=== PATIENT | female | born 1980 | race Caucasian/White ===

== ENCOUNTER → 2016-11-05 | Outpatient (CLI) | payer OTHER ==
--- NOTE | 2016-11-05 11:59 | MR ---
MRI of the brain with and without contrast HISTORY: Headaches. TECHNIQUE: T1-weighted sagittal, T2, FLAIR, and diffusion axial, postcontrast T1 axial and coronal vi ews of the brain are submitted. CONTRAST: 10 mL MultiHance FINDINGS: There is no evidence of acute ischemia. The ventricles, basal cisterns, and sulci overlying the co nvexities are consistent with the patient's age. There is no mass effect or enhancing mass. Craniocervical junction maintained. Sella turcica has a normal appearance. No evidence of cerebellopo ntine angle mass. Prominent CSF space throughout the prepontine cistern and perimesencephalic cistern. Vasculature does traverse this and this may represent a normal variant. Small arachnoid cyst, epidermoid would be les s likely considerations, however, there is no mass effect or lobulation to the anterior margin the br ainstem. Correlate clinically. WHITE MATTER: No abnormal signal seen within the visualized white matter. IMPRESSION: 1. No acute intracranial process. See above.
== END | disposition home or self-care (01) ==
LOC: RADMRIMAIN 09:38
PROVIDERS: ATTEND Family Medicine
DX: G43.909 Migraine, unspecified, not intractable, without status migrainosus (principal)
CPT/HCPCS: 70553; A9577

== ENCOUNTER → 2017-05-09 | Outpatient (CLI) | payer OTHER ==
--- NOTE | 2017-05-10 07:06 | US ---
EXAMINATION TYPE: US pelvic complete DATE OF EXAM: 05/09/2017 COMPARISON: NONE CLINICAL HISTORY: N94.1 dyspareunia R10.2 Abdominal Pain. Pelvic cramping TECHNIQUE: TA Date of LMP: 05/04/2017 EXAM MEASUREMENTS: Uterus: 8.2 x 1.7 x 2.0 cm Endometrial Stripe: 0.7 cm Right Ovary: 2.3 x 1.7 x 2.0 cm Left Ovary: 2.2 x 1.8 x 1.5 cm 1. Uterus: Anteverted wnl 2. Endometrium: wnl 3. Right Ovary: wnl 4. Left Ovary: wnl 5. Bilateral Adnexa: wnl 6. Posterior cul-de-sac: wnl No evidence for uterine mass. The uterus is anteverted. Endometrium is unremarkable. No adnexal or ov cyrus masses. IMPRESSION: Unremarkable study.
== END | disposition home or self-care (01) ==
LOC: RADUSWWP 16:40
PROVIDERS: ATTEND Family Medicine
DX: N94.10 Unspecified dyspareunia (principal); R10.2 Pelvic and perineal pain
CPT/HCPCS: 76856

== ENCOUNTER → 2018-05-31 | Outpatient (CLI) | payer OTHER ==
[2018-05-31 11:47] LABS: HCT 35.2 % (34.0-46.0); HGB 11.9 gm/dL (11.4-16.0); MCH 32.3 pg (25.0-35.0); MCHC 33.7 g/dL (31.0-37.0); MCV 95.7 fL (80.0-100.0); Mean Platelet Volume 7.8; Platelet Count 241 k/uL (150-450); RBC 3.67 m/uL (3.80-5.40); RDW 13.1 % (11.5-15.5); WBC 12.4 k/uL (3.8-10.6)
== END | disposition home or self-care (01) ==
LOC: LABWHC1 09:31
PROVIDERS: ATTEND Obstetrics & Gynecology
DX: Z34.82 Encounter for supervision of other normal pregnancy, second trimester (principal); Z3A.00 Weeks of gestation of pregnancy not specified
CPT/HCPCS: 36415; 82950; 85027

== ENCOUNTER 2018-07-20 16:44 | Outpatient (CLI) | payer OTHER ==
[2018-07-20 23:00] VITALS: BP 139/85; PULSE 108; RESP 18; TEMP 98.4
--- NOTE | 2018-07-25 07:01 | P.MSEPDOC ---
Presenting Problems - Arrival Data Date of Arrival on Unit: 07/20/18 Time of Arrival on Unit: 16:44 Mode of Transport: Ambulatory - Complaint Comment: pt presents to triage for twice weekly NST by Dr. Lange for JOLIET Medical History - Information : 6 Para: 4 Term: 4 : 0 Abortions: Spontaneous or Elective: 1 Number of Living Children: 4 - Gestational Age Gestational Age by REBECA (wks/days): 35 Weeks and 3 Days - History Complications: Smoker Review of Systems - Review of Systems Constitutional: No problems Breast: No problems ENT: No problems Cardiovascular: No problems Respiratory: No problems Gastrointestinal: No problems Genitourinary: No problems Musculoskeletal: No problems Neurological: No problems Skin: No problems Vital Signs - Temperature Temperature: 98.4 F Temperature Source: Temporal Artery Scan - Pulse Right Brachial Pulse Rate: 108 Pulse Assessment Method: Automatic Cuff - Respirations Respiratory Rate: 18 Oxygen Delivery Method: Room Air - Blood Pressure Right Arm Blood Pressure: 139/85 Blood Pressure Mean: 103 Blood Pressure Source: Automatic Cuff Physician Notification (Pre) - Physician Notified Physician Notified Date: 07/20/18 Physician Notified Time: 17:20 Physician/Practitioner Notifed:: Dr. Lynn Spoke With: Dr. Lynn New Order Received: Yes - Notification Comment Comment: discharge pt home Disposition - Disposition OB Disposition: Triage, Discharge to home, Written follow up instructions reviewed Discharge Date: 07/20/18 Discharge Time: 17:30 I agree with the RN Medical Screening Exam: Yes Risk & Benefit of care provided described in d/c instruction: Yes Diagnosis: SUPERVISION OF ELDERLY MULTIGRAVIDA, THIRD TRIMESTER
== END 2018-07-20 17:30 | disposition home or self-care (01) ==
LOC: FBPOP 16:44
PROVIDERS: ATTEND Obstetrics & Gynecology
DX: O09.523 Supervision of elderly multigravida, third trimester (principal); Z3A.35 35 weeks gestation of pregnancy
CPT/HCPCS: 59025

== ENCOUNTER 2018-07-24 17:54 | Observation (INO) | payer OTHER ==
[2018-07-24 18:20] LABS: Basophils # (A) 0.1 k/uL (0-0.2); Basophils % (A) 0 %; Eosinophils # (A) 0.3 k/uL (0-0.7); Eosinophils % (A) 3 %; HCT 38.4 % (34.0-46.0); HGB 12.6 gm/dL (11.4-16.0); Lymphocytes # (A) 2.1 k/uL (1.0-4.8); Lymphocytes % (A) 16 %; MCH 30.9 pg (25.0-35.0); MCHC 32.7 g/dL (31.0-37.0); MCV 94.4 fL (80.0-100.0); Mean Platelet Volume 8.2; Monocytes # (A) 0.9 k/uL (0-1.0); Monocytes % (A) 7 %; Neutrophils % (A) 72 %; Platelet Count 296 k/uL (150-450); RBC 4.07 m/uL (3.80-5.40); RDW 13.3 % (11.5-15.5); WBC 12.6 k/uL (3.8-10.6)
[2018-07-24 18:28] LABS: ALT 37 U/L (9-52); AST 30 U/L (14-36); Blood Urea Nitrogen 8 mg/dL (7-17); LDH 456 U/L (313-618); Uric Acid 4.4 mg/dL (3.7-7.4)
[2018-07-24 18:49] LABS: Appearance,Urine Clear (Clear); Bilirubin,Urine Negative (Negative); Blood,Urine Negative (Negative); Color,Urine Colorless; Glucose,Urine (UA) Negative (Negative); Ketones,Urine Negative (Negative); Leukocyte Esterase,Urine Negative (Negative); Nitrite,Urine Negative (Negative); Protein,Urine Negative (Negative); Specific Gravity,Urine 1.002 (1.001-1.035); Urobilinogen,Urine <2.0 mg/dL (<2.0)
[2018-07-24 19:53] VITALS: BMI 29.5
--- NOTE | 2018-07-24 20:08 | P.HPOB ---
History of Present Illness H&P Date: 07/24/18 Chief Complaint: Gestational hypertension. This patient is a pleasant 38 yr female EDC 08/21/2018 estimated gestational age 36 0/7 weeks who presented to L&D this evening for a NST secondary to AMA. care is per Dr. Lange and is complicated by advanced gestational age and history of hypertension. Patient apparently only wanted free cell DNA testing however it does not appear that she did this test. Patient did not want referral to [facility]. Patient has been getting NST 2x/week. She presented to L&D this evening for an NST due to not having transportation during the day hours. Blood pressure on admission was 138/96 and 144/106. Blood pressures in the office prior to this were normal. Patient reports a history of hypertension when not , but apparently no meds. She also had elevated blood pressures (150/90) at the time of her last delivery. Patient denies headaches, visual changes, or swelling. Good movement. Does have a history of 19 week demise. Last ultrasound was at 32 weeks and showed adequate growth (84%). Patient does smoke >1/2 PPD. Review of Systems Genitourinary: Reports Menstruation: Reports amenorrhea Past Medical History Past Medical History: Hypertension (No meds.) History of Any Multi-Drug Resistant Organisms: None Reported Past Surgical History: No Surgical Hx Reported Past Anesthesia/Blood Transfusion Reactions: No Reported Reaction Past Psychological History: No Psychological Hx Reported Smoking Status: Current some day smoker Past Alcohol Use History: None Reported Past Drug Use History: None Reported - Past Family History Father Family Medical History: No Reported History Medications and Allergies Home Medications Medication Instructions Recorded Confirmed Type Vit No.124/Iron/Folic 1 each PO DAILY 02/09/15 07/20/18 History [ Vitamin Tablet] Montelukast Sodium [Singulair] 5 mg PO DAILY 07/20/18 07/20/18 History Allergies Allergy/AdvReac Type Severity Reaction Status Date / Time No Known Allergies Allergy Verified 07/24/18 17:56 Exam Vital Signs Temp Pulse Resp BP 07/24/18 19:10 102 H 18 139/94 07/24/18 18:34 97.6 F 103 H 18 138/96 Intake and Output 07/24/18 07/24/18 07/24/18 06:59 14:59 22:59 Other: Weight 78.018 kg - OBG Physical Exam Uterus: enlarged Results Labs: A positive, Rubella Immune, RPR-HepB neg, Glucola 108 Result Diagrams: 07/24/18 18:12 07/24/18 18:12 Abnormal Lab Results - Last 24 Hours (Table) 07/24/18 07/24/18 Range/Units 18:12 18:12 WBC 12.6 H (3.8-10.6) k/uL Neutrophils # 9.0 H (1.3-7.7) k/uL Creatinine 0.47 L (0.52-1.04) mg/dL Assessment and Plan Assessment: This is a 38 yr female 36 and 0/7 weeks with gestational hypertension, new onset. Possible history of chronic hypertension and previous gestational hypertension. Although current labs do not indicate pre-eclampsia, she has significant risks factors for developing this. At this time there is no evidence of maternal compromise. Plan is to admit for close observation, serial blood pressures, surveilance, and complete ultrasound in the morning. Currently her BPs do not warrant treatment. Most likely will require close outpatient monitoring and delivery at 37 weeks. (1) 36 weeks gestation of Current Visit: Yes Status: Acute Code(s): Z3A.36 - 36 WEEKS GESTATION OF SNOMED Code(s): 12278993 (2) Gestational hypertension Current Visit: Yes Status: Acute Code(s): O13.9 - GESTATIONAL HTN W/O SIGNIFICANT PROTEINURIA, UNSP TRIMESTER SNOMED Code(s): 889077706 (3) Elderly multigravida in third trimester Current Visit: Yes Status: Acute Code(s): O09.523 - SUPERVISION OF ELDERLY MULTIGRAVIDA, THIRD TRIMESTER SNOMED Code(s): 324168922
[2018-07-24 23:17] VITALS: RESP 16
--- NOTE | 2018-07-25 08:47 | US ---
EXAMINATION TYPE: US OB >= 14 wk fetus DATE OF EXAM: 07/25/2018 COMPARISON: None CLINICAL HISTORY: Hypertension HTN TECHNIQUE: Transabdominal (TA) GESTATIONAL AGE / DATING Physician Established: (36 weeks/2 days) EDC: 08/20/18 Dates by LMP: unknown Dates by First Scan: No previous this is first scan Dates by Current Scan: (36 weeks/4 days) EDC: 08/18/18 SURVEY IUP: Single PLACENTA: Anterior PREVIA: No Previa DEION: 11.7 cm Normal CERVICAL LENGTH (transabdominal: norm > 3.0cm): 3.5 cm BIOMETRY PRESENTATION: Vertex LIE: Longitudinal BPD: 9.2 cm 37 weeks / 1 days HC: 32.9 cm 37 weeks / 3 days AC: 32.8 cm 36 weeks / 5 days FL: 7.2 cm 36 weeks / 5 days ESTIMATED WEIGHT IN GRAMS: 3042 grams ESTIMATED WEIGHT IN LBS/OZ: 6 lbs. 11 oz. WEIGHT PERCENTAGE BASED ON ESTABLISHED DATES: 67.6% HC/AC: 1.00 Normal FL/AC: 21.81 Normal HEART RATE: 150 bpm RHYTHM: Normal Single viable IUP 36wks/4days with REBECA of 08/18/18. Limited evaluation of cervix due to age and cephalic position. anatomy assessment was not ordered or performed. Images are not submitted. IMPRESSION: Viable 36 week 4 day gestation with an REBECA of 08/10/2018 and heart rate of 150 bpm.
[2018-07-25] MEDS ORDERED: ACETAMINOPHEN TAB 325 MG TAB PO PRN (08:53)
[2018-07-25 12:02] VITALS: BP 136/96; PULSE 97; TEMP 97.8
--- NOTE | 2018-07-25 12:36 | P.DS ---
Providers Date of admission: 07/24/18 19:14 Expected date of discharge: 07/25/18 Attending physician: Chin Lange Primary care physician: Stated None Hospital Course: Judy is seen and evaluated today. I did see her both this morning and at noon. She is had no significant change in her blood pressures there all between 130/90 range. She has no symptoms no headache, no epigastric pain, no visual changes, minimal to no peripheral swelling, no protein in her urine. We did review all labs, there are no labs relating to verification for preeclampsia. In discussing further her current situation with her blood pressure it is noted that she had been on a low pressure medication just prior to getting and then stopped, she was not on it for very long and it was as far she That her blood pressure was not significantly elevated. I suspect that she does have some underlying hypertension which does increase her risk for superimposed preeclampsia. It is still possible this is truly gestational hypertension and the hypertension prior to her really wasn't an issue. With normal systolic and only minimally elevated diastolic blood pressures will plan to discharge her to home and follow-up with me on Tuesday for NST and blood pressure check lengthy discussion was held with her on modified bedrest and resting as much as possible. Discharge instructions were very thoroughly reviewed including to return immediately for contractions, rupture membranes, headache, epigastric pain, visual changes or any other signs or symptoms of preeclampsia. An information sheet was also provided for her to review. All the questions are answered for her at this time. Her heart is otherwise regular, lungs clear and her extremities are without pain. NST earlier today was reactive. Assessment intrauterine 36 weeks with hypertension versus gestational hypertension. Plan discharged home follow up with me in 3 days. Patient Condition at Discharge: Good Plan - Discharge Summary New Discharge Prescriptions: No Action Vit No.124/Iron/Folic [ Vitamin Tablet] 1 each PO DAILY Montelukast Sodium [Singulair] 5 mg PO DAILY Discharge Medication List Vit No.124/Iron/Folic [ Vitamin Tablet] 1 each PO DAILY [History] Montelukast Sodium [Singulair] 5 mg PO DAILY 07/20/18 [History] Follow up Appointment(s)/Referral(s): Chin Lange DO [Doctor of Osteopathic Medicine] - 3 Weeks Activity/Diet/Wound Care/Special Instructions: Patient to be discharged home on modified bedrest. Complete pelvic rest. She is aware should she have any headache Epigastric pain, visual changes or other issues relating to hypertension she needs to report immediately back to labor and delivery. Discharge Disposition: HOME SELF-CARE
== END 2018-07-25 13:10 | disposition home or self-care (01) ==
LOC: FBPOP 17:54 → 4FBP 19:14
PROVIDERS: ADMIT Obstetrics & Gynecology; ATTEND Obstetrics & Gynecology
DX: Z3A.36 36 weeks gestation of pregnancy (principal); O13.3 Gestational [pregnancy-induced] hypertension without significant proteinuria, third trimester; O99.333 Smoking (tobacco) complicating pregnancy, third trimester; F17.210 Nicotine dependence, cigarettes, uncomplicated; O09.523 Supervision of elderly multigravida, third trimester
CPT/HCPCS: 59025; 99215; 82565; 83615; 84450; 84460; 84520; 84550; 85025; 81003; 76805; G0378 ×2

== ENCOUNTER 2018-08-12 06:19 | Inpatient (IN) | payer OTHER ==
[2018-08-12] MEDS ORDERED: CARBOPROST TROMETHAMINE 250 MCG/ML 1 ML AMP IM PRN (06:25)
[2018-08-12] MEDS ORDERED: LIDOCAINE 0.5% (PF) 5 MG/ML (50 ML SDV) SQ PRN (06:25)
[2018-08-12] MEDS ORDERED: OXYTOCIN 10 UNIT/ML 1 ML VIAL IM PRN (06:25)
[2018-08-12] MEDS ORDERED: TERBUTALINE 1 MG/ML VIAL SQ PRN (06:25)
[2018-08-12] MEDS ORDERED: METHYLERGONOVINE 0.2 MG/ML 1 ML AMP IM PRN (06:25)
[2018-08-12] MEDS ORDERED: OXYTOCIN 20 UNITS/1000 ML NS 1,000 ML IV SCH ×2 (06:30→07:15)
[2018-08-12] MEDS ORDERED: LACTATED RINGERS 1,000 ML IV SCH (06:30)
[2018-08-12 06:38] LABS: Basophils # (A) 0.1 k/uL (0-0.2); Basophils % (A) 0 %; Eosinophils # (A) 0.4 k/uL (0-0.7); Eosinophils % (A) 3 %; HCT 43.2 % (34.0-46.0); HGB 14.1 gm/dL (11.4-16.0); Lymphocytes # (A) 2.3 k/uL (1.0-4.8); Lymphocytes % (A) 16 %; MCHC 32.7 g/dL (31.0-37.0); MCV 94.7 fL (80.0-100.0); Mean Platelet Volume 8.2; Monocytes # (A) 0.9 k/uL (0-1.0); Monocytes % (A) 6 %; Neutrophils # (A) 10.7 k/uL (1.3-7.7); Neutrophils % (A) 74 %; Platelet Count 281 k/uL (150-450); RBC 4.56 m/uL (3.80-5.40); RDW 13.1 % (11.5-15.5); WBC 14.5 k/uL (3.8-10.6)
[2018-08-12] MEDS ORDERED: ACETAMINOPHEN TAB 325 MG TAB PO PRN (07:08)
[2018-08-12] MEDS ORDERED: HYDROCORTISONE 2.5% RECTAL CREAM 30 GM TUBE RECTAL PRN (07:08)
[2018-08-12] MEDS ORDERED: diphenhydrAMINE 25 MG CAP PO PRN (07:08)
[2018-08-12] MEDS ORDERED: diphenhydrAMINE 50 MG/ML 1 ML VIAL IVP PRN ×2 (07:08)
[2018-08-12] MEDS ORDERED: LANOLIN CREAM 5 GM TUBE TOPICAL PRN (07:08)
[2018-08-12] MEDS ORDERED: SIMETHICONE 80 MG CHEWABLE PO PRN (07:08)
[2018-08-12] MEDS ORDERED: ZOLPIDEM 5 MG TAB PO PRN (07:08)
[2018-08-12] MEDS ORDERED: WITCH HAZEL 1 EACH MED..PAD TOPICAL PRN (07:08)
[2018-08-12] MEDS ORDERED: diphenhydrAMINE 50 MG CAP PO PRN (07:08)
[2018-08-12] MEDS ORDERED: BENZOCAINE/MENTHOL SPRAY 1 GM/SPRAY AEROSOL TOPICAL PRN (07:08)
[2018-08-12 07:09] VITALS: BMI 27.1
--- NOTE | 2018-08-12 07:17 | P.HPOB ---
History of Present Illness H&P Date: 08/12/18 Chief Complaint: LAbor 38 year old presents at 38 weeks 5 days in labor. Her cervix is 6-7 cm dilated, 90s presented effaced, -2 station. She is vinicius every 3 minutes. heart tones 130-135 with moderate variability and reactive. Review of Systems All systems: negative Constitutional: Denies chills, Denies fever Eyes: denies blurred vision, denies pain Ears, nose, mouth and throat: Denies headache, Denies sore throat Cardiovascular: Denies chest pain, Denies shortness of breath Respiratory: Denies cough Gastrointestinal: Denies abdominal pain, Denies diarrhea, Denies nausea, Denies vomiting Genitourinary: Denies dysuria, Denies hematuria Musculoskeletal: Denies myalgias Integumentary: Denies pruritus, Denies rash Neurological: Denies numbness, Denies weakness Psychiatric: Denies anxiety, Denies depression Endocrine: Denies fatigue, Denies weight change Past Medical History Past Medical History: Hypertension, Mitral Valve Prolapse (MVP) Additional Past Medical History / Comment(s): OB history: She's had 4 previous vaginal deliveries. This is her sixth . She's had care with Dr. Lange. Blood type A+, antibodies negative, rubella immune, this B-, GBS negative, RPR nonreactive. History of Any Multi-Drug Resistant Organisms: None Reported Past Surgical History: No Surgical Hx Reported Past Anesthesia/Blood Transfusion Reactions: No Reported Reaction Past Psychological History: No Psychological Hx Reported Smoking Status: Former smoker Past Alcohol Use History: None Reported Past Drug Use History: None Reported - Past Family History Father Family Medical History: No Reported History Medications and Allergies Home Medications Medication Instructions Recorded Confirmed Type Vit No.124/Iron/Folic 1 each PO DAILY 02/09/15 08/12/18 History [ Vitamin Tablet] Montelukast Sodium [Singulair] 5 mg PO DAILY 07/20/18 08/12/18 History Allergies Allergy/AdvReac Type Severity Reaction Status Date / Time No Known Allergies Allergy Verified 08/12/18 06:24 Exam Osteopathic Statement: *. No significant issues noted on an osteopathic structural exam other than those noted in the History and Physical/Consult. Vital Signs Temp Pulse Resp BP 08/12/18 06:41 98.1 F 105 H 18 140/96 08/12/18 06:25 98.1 F 105 H 18 140/96 Intake and Output 08/11/18 08/12/18 08/12/18 22:59 06:59 14:59 Other: Weight 71.668 kg Heart: Regular rate and rhythm Lungs: Clear to auscultation bilaterally Abdomen: Soft, nontender Extremities: Negative Homans sign Results Result Diagrams: 08/12/18 06:30 Abnormal Lab Results - Last 24 Hours (Table) 08/12/18 Range/Units 06:30 WBC 14.5 H (3.8-10.6) k/uL Neutrophils # 10.7 H (1.3-7.7) k/uL Assessment and Plan (1) Normal labor Current Visit: Yes Status: Acute Code(s): O80 - ENCOUNTER FOR FULL-TERM UNCOMPLICATED DELIVERY; Z37.9 - OUTCOME OF DELIVERY, UNSPECIFIED SNOMED Code(s ): 34678928 Plan: 1. Admit to family place 2. Anticipate normal vaginal delivery
--- NOTE | 2018-08-12 07:18 | P.PROBDLV ---
Vaginal Delivery Note - . Vaginal Delivery Note: 38 year old presents at 38 weeks 5 days in labor. Her cervix is 6-7 cm dilated, 90s presented effaced, -2 station. She is vinicius every 3 minutes. heart tones 130-135 with moderate variability and reactive. Amniotomy was performed at 6:56 AM, clear fluid noted. Her cervix was completely dilated at 6:58 AM. She pushed, and delivered a viable female infant over intact perineum at 6:59 AM. Head delivered OA, anterior shoulder delivered gentle downward guidance all the posterior shoulder and rest of body. Nose and mouth bulb suctioned, cord clamped and cut, infant placed mother's abdomen. Apgars 8, 9, weight 8 lbs. 7 oz. Placenta delivered spontaneously, intact with three-vessel cord at 7:03 AM. Vagina, cervix, perineum inspected. No lacerations noted. Estimated blood loss 150 mL. Mother and baby in stable condition.
[2018-08-12] MEDS: IBUPROFEN 600 MG TAB PO PRN ×3 (07:26→20:58)
[2018-08-12] MEDS: LABETALOL 200 MG TAB PO SCH ×2 (12:05→20:58)
[2018-08-12] MEDS: SENNOSIDES-DOCUSATE SODIUM 1 EACH TAB PO SCH ×2 (19:58→21:33)
[2018-08-12 21:31] VITALS: RESP 16
[2018-08-13] MEDS: SENNOSIDES-DOCUSATE SODIUM 1 EACH TAB PO SCH (00:13)
[2018-08-13] MEDS: IBUPROFEN 600 MG TAB PO PRN (06:14)
--- NOTE | 2018-08-13 07:23 | P.DS ---
Providers Date of admission: 08/12/18 06:29 Expected date of discharge: 08/13/18 Attending physician: Chin Lange Primary care physician: Stated None - Discharge Diagnosis(es) (1) Normal labor Current Visit: Yes Status: Resolved (2) Normal vaginal delivery Current Visit: Yes Status: Acute Hospital Course: Patient presented in labor. She underwent a normal vaginal delivery. her blood pressures were 150s over 100s. She says that before she was she did have high blood pressure and was on blood pressure medication but during her her blood pressures remained stable except for one occurrence where she did have an elevated blood pressure and was kept overnight for a workup that was negative. I placed on labetalol 200 mg twice a day and her blood pressures came down to 120s over 70s to 130s over 90s. She will follow up with her primary care doctor this week to follow her blood pressures. Labs were all normal and she denies any symptoms, no headache no vision changes no shortness of breath no swelling no right upper quadrant pain. She is aware that if any of these symptoms do presents she is to return to the hospital immediately. Plan - Discharge Summary New Discharge Prescriptions: New Labetalol [Trandate] 200 mg PO BID #60 tab No Action Vit No.124/Iron/Folic [ Vitamin Tablet] 1 each PO DAILY Montelukast Sodium [Singulair] 5 mg PO DAILY Discharge Medication List Vit No.124/Iron/Folic [ Vitamin Tablet] 1 each PO DAILY [History] Montelukast Sodium [Singulair] 5 mg PO DAILY 07/20/18 [History] Labetalol [Trandate] 200 mg PO BID #60 tab 08/13/18 [Rx] Follow up Appointment(s)/Referral(s): Chin Lange DO [Doctor of Osteopathic Medicine] - 6 Weeks Kaylah Morgan DO [REFERRING] - 1 Week (for blood pressure) Discharge Disposition: HOME SELF-CARE
[2018-08-13 08:11] VITALS: BP 125/81; PULSE 93; TEMP 97.6
[2018-08-13] MEDS: LABETALOL 200 MG TAB PO SCH (08:47)
== END 2018-08-13 10:30 | disposition home or self-care (01) | DRG 807 ==
LOC: FBPOP 06:19 → 4FBP 06:29
PROVIDERS: ADMIT Obstetrics & Gynecology; ATTEND Obstetrics & Gynecology
PROC: 10E0XZZ Delivery of Products of Conception, External Approach (ICD-10-PCS; principal; 2018-08-12)
PROC: 10907ZC Drainage of Amniotic Fluid, Therapeutic from Products of Conception, Via Natural or Artificial Opening (ICD-10-PCS; 2018-08-12)
DX: O80 Encounter for full-term uncomplicated delivery (principal); Z37.0 Single live birth; Z3A.38 38 weeks gestation of pregnancy; Z87.891 Personal history of nicotine dependence; Z79.899 Other long term (current) drug therapy
CPT/HCPCS: 59025; 85025; 86850; 86900; 86901; 99213

== ENCOUNTER 2019-12-06 05:55 | Day surgery (SDC) | payer OTHER ==
[2019-12-05 15:23] VITALS: BMI 23.8
[~2019-12-06 05:55] MED LIST: Pre Op ABX Message 1 EACH MISC MISCELLANE ONE
[2019-12-06] MEDS ORDERED: ONDANSETRON 4 MG/2 ML VIAL IVP ONE ×2 (05:58→08:18)
[2019-12-06] MEDS ORDERED: LACTATED RINGERS 1,000 ML IV SCH (05:58)
[2019-12-06] MEDS ORDERED: DEXAMETHASONE SOD PHOSPHATE 10 MG/ML 1 ML VIAL IV ONE (05:58)
[2019-12-06] MEDS ORDERED: MIDAZOLAM 2 MG/2 ML VIAL IV PRN (05:58)
[2019-12-06 06:36] VITALS: RESP 16
--- NOTE | 2019-12-06 06:50 | P.HPOB ---
History of Present Illness H&P Date: 12/06/19 Chief Complaint: Missed AB: 13 weeks gestation Judy is a 39-year-old 7 para 5 with 1 prior stillbirth who was seen in the office yesterday and noted to have demise at 13 weeks. She was supposed to be 15 weeks. No cardiac activity was noted on ultrasound nor on Doppler. Discussion with the patient for resolution of miscarriage included conservative observation versus D&E due to being past 13 weeks gestation. Risks/benefits/alternatives to these were reviewed with patient in detail and especially with dilation and evacuation included but were not limited to bleeding and infection, damage to bladder or bowel, perforation of the uterus potential need for blood transfusion and/or further surgical options depending on amount of bleeding. On physical exam vital signs are stable and afebrile. Heart regular, lungs clear, extremities without pain. Abdomen is soft uterus is 13 weeks' size. Assessment 13 week demise/missed . Plan dilation and evacuation Past Medical History Past Medical History: Eye Disorder, Hypertension, Mitral Valve Prolapse (MVP) Additional Past Medical History / Comment(s): OB history: She's had 4 previous vaginal deliveries. This is her sixth . She's had care with Dr. Lange. Blood type A+, antibodies negative, rubella immune, this B-, GBS negative, RPR nonreactive. HTN w/ last . 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 History of Any Multi-Drug Resistant Organisms: None Reported Past Surgical History: No Surgical Hx Reported Additional Past Surgical History / Comment(s): Humble teeth extracted. Past Anesthesia/Blood Transfusion Reactions: No Reported Reaction Smoking Status: Current every day smoker - Past Family History Mother Family Medical History: No Reported History Father Family Medical History: No Reported History Medications and Allergies Home Medications Medication Instructions Recorded Confirmed Type Vit No.124/Iron/Folic 1 each PO HS 02/09/15 12/06/19 History [ Vitamin Tablet] Acetaminophen [Tylenol Extra 1,000 mg PO DIRECTED PRN 12/05/19 12/06/19 History Strength] Fluticasone Nasal Lamar [Flonase 1 spray EA NOSTRIL DAILY PRN 12/05/19 12/06/19 History Nasal Lamar] Allergies Allergy/AdvReac Type Severity Reaction Status Date / Time Latex, Natural Rubber Allergy Rash (felt Verified 12/06/19 06:32 due to powder in gloves) Exam Osteopathic Statement: *. No significant issues noted on an osteopathic structural exam other than those noted in the History and Physical/Consult. Vital Signs Temp Pulse Resp BP Pulse Ox 12/06/19 06:35 98.4 F 96 16 116/75 98 Intake and Output 12/05/19 12/05/19 12/06/19 14:59 22:59 06:59 Other: Weight 63.049 kg 62.1 kg
[2019-12-06 06:51] LABS: Basophils # (A) 0.1 k/uL (0-0.2); Basophils % (A) 1 %; Eosinophils # (A) 0.4 k/uL (0-0.7); Eosinophils % (A) 5 %; HCT 41.2 % (34.0-46.0); HGB 13.8 gm/dL (11.4-16.0); Lymphocytes # (A) 2.2 k/uL (1.0-4.8); Lymphocytes % (A) 25 %; MCH 31.2 pg (25.0-35.0); MCHC 33.6 g/dL (31.0-37.0); MCV 93.1 fL (80.0-100.0); Mean Platelet Volume 7.9; Monocytes # (A) 0.5 k/uL (0-1.0); Monocytes % (A) 6 %; Neutrophils # (A) 5.5 k/uL (1.3-7.7); Neutrophils % (A) 63 %; Platelet Count 252 k/uL (150-450); RBC 4.43 m/uL (3.80-5.40); RDW 12.2 % (11.5-15.5); WBC 8.8 k/uL (3.8-10.6)
[2019-12-06] MEDS ORDERED: MIDAZOLAM 2 MG/2 ML VIAL IVP ONE (06:51)
[2019-12-06] MEDS ORDERED: OXYTOCIN 10 UNIT/ML 1 ML VIAL ONE (06:59)
[2019-12-06] MEDS ORDERED: KETOROLAC 30 MG/ML 1 ML VIAL ONE (06:59)
[2019-12-06] MEDS ORDERED: fentaNYL (PF) 50 MCG/ML 2 ML AMP ONE (06:59)
[2019-12-06] MEDS ORDERED: SUCCINYLCHOLINE CHLORIDE 100 MG/5 ML SYR IV ONE (06:59)
[2019-12-06] MEDS ORDERED: METHYLERGONOVINE 0.2 MG/ML 1 ML AMP ONE (06:59)
[2019-12-06] MEDS ORDERED: LIDOCAINE 1% INJ 10MG/ML (20 ML MDV) ONE (06:59)
[2019-12-06] MEDS ORDERED: PROPOFOL 10 MG/ML 20 ML VIAL IV ONE (06:59)
[2019-12-06 07:45] VITALS: TEMP 97.6
--- NOTE | 2019-12-06 07:55 | P.OP ---
Date of Procedure: 12/06/19 Preoperative Diagnosis: demise Postoperative Diagnosis: Same Procedure(s) Performed: Dilation and evacuation Anesthesia: CHARLIE Surgeon: Chin Lange Estimated Blood Loss (ml): 300 IV fluids (ml): 500 Pathology: other (Products of conception) Condition: stable (thank you abdomen and) Disposition: same day Operative Findings: Pathology pending Description of Procedure: Judy was taken to the operating suite where a general anesthetic was found be adequate. She was prepped and draped in normal sterile fashion and placed in dorsal lithotomy position. Initially a weighted speculum was inserted into the vagina and the anterior lip cervix identified and grasped with a single-tooth tenaculum. Cervix was then dilated to 14. A 14 curved tip suction curette was then placed in the uterus and suction was applied. Rotating it clockwise motion much of the products of conception were able to be removed in this fashion. Once the first 2 passes were done a ring forceps was placed in the uterus to extract any remaining tissue. Once completed another pass with the suction curette was then done. Once completed using a large her curette, gentle curettings of the endometrium were done not only to remove any excess tissue but to verify that no other potential proximal conception were palpated and felt to be present. Another 2 passes with the suction tip curette were then done and gentle massage the uterus was done as well and excellent hemostasis was felt to be obtained at that point. All instruments were then removed. Sponge, lap, needle counts were all correct 2. Patient was then taken to the recovery room in stable and satisfactory condition. As precaution 0.2 of Methergine was provided intramuscular prior to leaving the operating room to help assist in uterine vinicius and limited bleeding Plan - Discharge Summary Discharge Rx Participant: No New Discharge Prescriptions: New Ibuprofen [Motrin] 600 mg PO Q6HR PRN #30 tab PRN Reason: Pain No Action Vit No.124/Iron/Folic [ Vitamin Tablet] 1 each PO HS Fluticasone Nasal Melvin [Flonase Nasal Melvin] 1 spray EA NOSTRIL DAILY PRN PRN Reason: allergies Acetaminophen [Tylenol Extra Strength] 1,000 mg PO DIRECTED PRN PRN Reason: Pain Discharge Medication List Vit No.124/Iron/Folic [ Vitamin Tablet] 1 each PO HS 02/09/15 [History] Acetaminophen [Tylenol Extra Strength] 1,000 mg PO DIRECTED PRN 12/05/19 [History] Fluticasone Nasal Melvin [Flonase Nasal Melvin] 1 spray EA NOSTRIL DAILY PRN 12/05/19 [History] Ibuprofen [Motrin] 600 mg PO Q6HR PRN #30 tab 12/06/19 [Rx] Follow up Appointment(s)/Referral(s): Chin Lange DO [Doctor of Osteopathic Medicine] - 2 Weeks Activity/Diet/Wound Care/Special Instructions: No heavy lifting, limit stairs and driving, and pelvic rest. If any high temperatures, heavy bleeding, or severe pain call my office Discharge Disposition: HOME SELF-CARE
[2019-12-06] MEDS: HYDROmorphone 0.5 MG/0.5 ML SYRINGE IVP PRN ×2 (07:59→08:04)
[2019-12-06] MEDS ORDERED: LACTATED RINGERS 1,000 ML IV ONE (08:21)
[2019-12-06] MEDS ORDERED: METOCLOPRAMIDE 5 MG/ML 2 ML VIAL IVP ONE (08:38)
[2019-12-06 09:10] VITALS: BP 105/74; PULSE 84
== END 2019-12-06 09:40 | disposition home or self-care (01) ==
LOC: OR 05:55
PROVIDERS: ATTEND Obstetrics & Gynecology
DX: O02.1 Missed abortion (principal); I10 Essential (primary) hypertension; I34.1 Nonrheumatic mitral (valve) prolapse; K21.9 Gastro-esophageal reflux disease without esophagitis; F17.210 Nicotine dependence, cigarettes, uncomplicated; Z79.899 Other long term (current) drug therapy; Z91.040 Latex allergy status; Z98.818 Other dental procedure status
CPT/HCPCS: 86900; 86901; 88305; 85025; 86850; 59820; J2250; J1100; J2210; J2590; J2765; J2405; J2001; J3010; J1885; J0330; J2704; J1170

== ENCOUNTER 2020-09-05 12:41 | Outpatient (CLI) | payer OTHER ==
[2020-09-05 14:16] VITALS: BP 104/62; PULSE 74; RESP 16; TEMP 98.3
--- NOTE | 2020-09-05 14:28 | US ---
EXAMINATION TYPE: US OB BPP wo non-stress DATE OF EXAM: 09/05/2020 COMPARISON: NONE CLINICAL HISTORY: decreased movement, 31 weeks. EXAM PERFORMED: Transabdominal (TA) BPP PARAMETERS: PRESENTATION: Vertex LIE: Longitudinal?? HEART RATE: 139 bpm RHYTHM: Normal DEION: 14.7 DIAPHRAGM IMAGED: Yes BPP SCORIN. Breathin (1 episode of breathing of 30 second duration in 30 minutes of scanning time) 2. Movement: 2 (at least 3 discrete body movements in 30 minutes) 3. Tone: 2 (1 episode of active flexion/extension of limb) 4. DEION: 2 (DEION index > 5cm) TOTAL SCORE: 8 / 8 Viable IUP, BPP score 8/8
--- NOTE | 2020-09-09 16:46 | P.MSEPDOC ---
Presenting Problems - Arrival Data Date of Arrival on Unit: 09/05/20 Time of Arrival on Unit: 13:55 Mode of Transport: Ambulatory - Complaint OB-Reason for Admission/Chief Complaint: Decreased Movement, Other Comment: non reactive nst in office. sent with orders for nst and bpp Medical History - Information : 8 Para: 5 Term: 5 : 0 Abortions: Spontaneous or Elective: 2 Number of Living Children: 5 - Gestational Age Gestational Age by REBECA (wks/days): 31 Weeks and 6 Days Review of Systems - Review of Systems Constitutional: No problems Breast: No problems ENT: No problems Cardiovascular: No problems Respiratory: No problems Gastrointestinal: No problems Genitourinary: No problems Musculoskeletal: No problems Neurological: No problems Skin: No problems Vital Signs - Temperature Temperature: 98.3 F Temperature Source: Temporal Artery Scan - Pulse Apical Pulse Rate: 74 Pulse Assessment Method: Automatic Cuff - Respirations Respiratory Rate: 16 Oxygen Delivery Method: Room Air O2 Sat by Pulse Oximetry: 99 - Blood Pressure Right Arm Blood Pressure: 104/62 Blood Pressure Mean: 76 Blood Pressure Source: Automatic Cuff Medical Screen Scoring (Pre) - Cervical Exam Dilation: Exam Deferred Effacement: Exam Deferred Membranes: Intact - Uterine Contractions Frequency: N/A Duration: N/A Intensity: N/A - Maternal Vital Signs Maternal Temperature: N/A Maternal Blood Pressure: N/A Signs of Preeclampsia: N/A Maternal Respirations: N/A - Maternal Trauma Maternal Trauma: N/A - Assessment - Baby A Baseline FHR: 130 Heart Rate - NICHD Category: Category I (Normal) = 0 NST: Reactive Position: N/A Station: N/A - Total Score - Baby A Total Score - Baby A: 0 - Total Score - Baby B Total Score - Baby B: 0 - Total Score - Baby C Total Score - Baby C: 0 - Level of Risk - Baby A Level of Risk - Baby A: Low (0-5) - Level of Risk - Baby B Level of Risk - Baby B: Low (0-5) - Level of Risk - Baby C Level of Risk - Baby C: Low (0-5) Physician Notification (Pre) - Physician Notified Physician Notified Date: 09/05/20 Physician Notified Time: 12:30 New Order Received: Yes (may discharge home) Disposition - Disposition OB Disposition: Discharge to home Discharge Date: 09/05/20 Discharge Time: 13:55 I agree with the RN Medical Screening Exam: Yes Risk & Benefit of care provided described in d/c instruction: Yes Diagnosis: DECREASED MOVEMENTS, THIRD TRIMESTER, FETUS 1
== END 2020-09-05 13:55 | disposition home or self-care (01) ==
LOC: FBPOP 12:41
PROVIDERS: ATTEND Obstetrics & Gynecology
DX: O36.8130 Decreased fetal movements, third trimester, not applicable or unspecified (principal); Z3A.31 31 weeks gestation of pregnancy
CPT/HCPCS: 59025; 76819

== ENCOUNTER 2020-11-06 08:24 | Inpatient (IN) | payer OTHER ==
[2020-11-06] MEDS ORDERED: OXYTOCIN 10 UNIT/ML 1 ML VIAL IM PRN (08:37)
[2020-11-06] MEDS ORDERED: TERBUTALINE 1 MG/ML VIAL SQ PRN (08:37)
[2020-11-06] MEDS ORDERED: METHYLERGONOVINE 0.2 MG/ML 1 ML AMP IM PRN (08:37)
[2020-11-06] MEDS ORDERED: CARBOPROST TROMETHAMINE 250 MCG/ML 1 ML AMP IM PRN (08:37)
[2020-11-06] MEDS ORDERED: LIDOCAINE 0.5% (PF) 5 MG/ML (50 ML SDV) SQ PRN (08:37)
[2020-11-06] MEDS: LACTATED RINGERS 1,000 ML IV SCH ×2 (09:09→19:41)
[2020-11-06] MEDS: OXYTOCIN 30 UNITS/500 ML NS 30 UNIT in SALINE 1 500ML.BAG IV SCH ×2 (09:43→14:07)
[2020-11-06] MEDS ORDERED: SIMETHICONE 80 MG CHEWABLE PO PRN (10:07)
[2020-11-06] MEDS ORDERED: diphenhydrAMINE 50 MG/ML 1 ML VIAL IVP PRN ×2 (10:07)
[2020-11-06] MEDS ORDERED: diphenhydrAMINE 25 MG CAP PO PRN (10:07)
[2020-11-06] MEDS ORDERED: diphenhydrAMINE 50 MG CAP PO PRN (10:07)
[2020-11-06] MEDS ORDERED: LANOLIN CREAM 5 GM TUBE TOPICAL PRN (10:07)
[2020-11-06] MEDS ORDERED: ZOLPIDEM 5 MG TAB PO PRN (10:07)
[2020-11-06] MEDS ORDERED: HYDROCORTISONE 2.5% RECTAL CREAM 30 GM TUBE RECTAL PRN (10:07)
[2020-11-06] MEDS ORDERED: BENZOCAINE/MENTHOL SPRAY 1 GM/SPRAY AEROSOL TOPICAL PRN (10:07)
[2020-11-06] MEDS: IBUPROFEN 600 MG TAB PO SCH ×3 (10:31→20:09)
[2020-11-06 10:49] LABS: Basophils # (A) 0.1 k/uL (0-0.2); Basophils % (A) 0 %; Eosinophils # (A) 0.1 k/uL (0-0.7); Eosinophils % (A) 1 %; HGB 12.1 gm/dL (11.4-16.0); Lymphocytes # (A) 1.4 k/uL (1.0-4.8); Lymphocytes % (A) 12 %; MCH 29.3 pg (25.0-35.0); MCHC 32.6 g/dL (31.0-37.0); MCV 89.7 fL (80.0-100.0); Mean Platelet Volume 8.8; Monocytes # (A) 0.6 k/uL (0-1.0); Monocytes % (A) 5 %; Neutrophils # (A) 9.3 k/uL (1.3-7.7); Neutrophils % (A) 80 %; Platelet Count 308 k/uL (150-450); RBC 4.12 m/uL (3.80-5.40); RDW 13.4 % (11.5-15.5); WBC 11.6 k/uL (3.8-10.6)
[2020-11-06] MEDS: ACETAMINOPHEN TAB 325 MG TAB PO PRN (12:18)
[2020-11-06 12:23] VITALS: RESP 16
--- NOTE | 2020-11-06 16:26 | P.HPOB ---
History of Present Illness H&P Date: 11/06/20 Chief Complaint: January at term: Active labor Judy is a 32-year-old at 39 weeks gestation who arrives in active labor. She is dilated to 7 cm and she is vinicius every 2-3 minutes. Her course was, complicated only by advanced maternal age for which she did receive nonstress tests thickened end of the . Blood pressures were fine no other significant findings. She she has and measuring appropriate throughout the as well. Pertinent labs do include A+ blood type, Rh abdomen was negative, rubella is immune, hepatitis B surface antigen and RPR are both negative. GBS was negative. She is not plan to use anything for an algesia. We anticipate a spontaneous vaginal delivery. Category 1 tracing is noted and artificial rupture membranes was performed and clear fluid is noted. Past Medical History Past Medical History: Eye Disorder, Hypertension, Mitral Valve Prolapse (MVP) Additional Past Medical History / Comment(s): OB history: She's had 4 previous vaginal deliveries. This is her sixth . She's had care with Dr. Lange. Blood type A+, antibodies negative, rubella immune, this B-, GBS negative, RPR nonreactive. HTN w/ last . 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 History of Any Multi-Drug Resistant Organisms: None Reported Past Surgical History: No Surgical Hx Reported Additional Past Surgical History / Comment(s): [place] teeth extracted. D&C Past Anesthesia/Blood Transfusion Reactions: No Reported Reaction Smoking Status: Never smoker - Past Family History Mother Family Medical History: No Reported History Father Family Medical History: No Reported History Medications and Allergies Home Medications Medication Instructions Recorded Confirmed Type Vit No.124/Iron/Folic 1 each PO HS 02/09/15 11/06/20 History [ Vitamin Tablet] Allergies Allergy/AdvReac Type Severity Reaction Status Date / Time No Known Allergies Allergy Verified 11/06/20 08:27 Exam Osteopathic Statement: *. No significant issues noted on an osteopathic structural exam other than those noted in the History and Physical/Consult. Vital Signs Temp Pulse Resp BP Pulse Ox 11/06/20 11:57 99.4 F 86 16 129/71 11/06/20 11:27 85 16 133/91 11/06/20 10:57 83 18 138/97 11/06/20 10:41 86 18 127/92 11/06/20 10:27 77 18 122/87 11/06/20 10:12 73 18 117/81 11/06/20 09:57 98.5 F 83 18 117/69 11/06/20 09:04 97.0 F L 93 20 141/85 100 11/06/20 08:56 97.0 F L 93 20 141/85 100 Intake and Output 11/06/20 11/06/20 11/06/20 06:59 14:59 22:59 Intake Total 500.000 Balance 500.000 Intake: Intake, IV Titration 500.000 Amount Oxytocin 30 Units/500 ml 500.000 Ns 30 unit In Saline 1 500ml.bag @ Per Protocol IV .Q0M [facility] Rx#:[id number] Other: Weight 80.739 kg - OBG Physical Exam Breast: both: normal (no masses) Abdomen: bowel sounds normal, no diffuse tenderness, no bruit present, no guarding noted, no hepatomegaly, no splenomegaly, no mass Vulva: both: normal Vagina: normal moisture, no discharge Cervix: no lesion, no discharge Uterus: normal size, normal contour Adnexa: both: normal Anus/Rectum: normal perianal skin, no rectal mass, no hemorrhoids, heme negative Results Result Diagrams: 11/06/20 10:16 Abnormal Lab Results - Last 24 Hours (Table) 11/06/20 Range/Units 10:16 WBC 11.6 H (3.8-10.6) k/uL Neutrophils # 9.3 H (1.3-7.7) k/uL
--- NOTE | 2020-11-06 16:27 | P.PROBDLV ---
Vaginal Delivery Note - . Vaginal Delivery Note: Patient progressed complete and pushed with spontaneous vaginal delivery of a viable male over an echo repair laceration. Following delivery of the head anterior posterior shoulders were easily delivered with gentle downward and upward traction followed by the remainder of the baby. Baby was delivered from left occiput anterior position. Once baby was delivered mouth nares were bulb suctioned and baby was placed on mother's abdomen where the umbilical cord was allowed to pulsate for 30 seconds prior to clamping and cutting. Nursery personnel was present and assumed care. Placenta was then delivered intact and Pitocin was added to the IV. scores were 9 and 9 at one and 5 minutes respectively and the weight was 9 lbs. 2 oz. Both mother and baby are currently stable following delivery.
[2020-11-06] MEDS: SENNOSIDES-DOCUSATE SODIUM 1 EACH TAB PO SCH (20:29)
[2020-11-07] MEDS: IBUPROFEN 600 MG TAB PO SCH (03:54)
[2020-11-07] MEDS: SENNOSIDES-DOCUSATE SODIUM 1 EACH TAB PO SCH (07:39)
[2020-11-07] MEDS: ACETAMINOPHEN TAB 325 MG TAB PO PRN (07:40)
[2020-11-07 08:44] VITALS: BP 133/90; PULSE 86; TEMP 98.3
[2020-11-07 09:52] LABS: Basophils # (A) 0.1 k/uL (0-0.2); Basophils % (A) 1 %; Eosinophils # (A) 0.3 k/uL (0-0.7); Eosinophils % (A) 2 %; HGB 10.6 gm/dL (11.4-16.0); Lymphocytes # (A) 1.8 k/uL (1.0-4.8); Lymphocytes % (A) 16 %; MCH 29.7 pg (25.0-35.0); MCHC 32.1 g/dL (31.0-37.0); MCV 92.3 fL (80.0-100.0); Mean Platelet Volume 8.3; Monocytes # (A) 0.8 k/uL (0-1.0); Monocytes % (A) 7 %; Neutrophils # (A) 8.4 k/uL (1.3-7.7); Neutrophils % (A) 74 %; Platelet Count 291 k/uL (150-450); RBC 3.58 m/uL (3.80-5.40); RDW 13.3 % (11.5-15.5); WBC 11.4 k/uL (3.8-10.6)
--- NOTE | 2020-11-07 10:02 | P.DS ---
Providers Date of admission: 11/06/20 08:34 Expected date of discharge: 11/07/20 Attending physician: Chin Lange Primary care physician: Stated None Hospital Course: Judy is doing very good post day 1. She is ambulating, voiding, and she is tolerating her diet. She voices no complaints. She is requesting discharge home today. Vital signs are stable and she is afebrile. Heart regular, lungs clear, extremities without pain. Abdomen soft, uterus is firm, lochia is reported to be light. Assessment day 1. Plan discharged home follow up in 6 weeks Patient Condition at Discharge: Good Plan - Discharge Summary New Discharge Prescriptions: No Action Vit No.124/Iron/Folic [ Vitamin Tablet] 1 each PO HS Discharge Medication List Vit No.124/Iron/Folic [ Vitamin Tablet] 1 each PO HS 02/09/15 [History] Follow up Appointment(s)/Referral(s): Chin Lange DO [Doctor of Osteopathic Medicine] - 6 Weeks Activity/Diet/Wound Care/Special Instructions: No heavy lifting, limit stairs and driving, and pelvic rest. If any high temper atures, heavy bleeding, or severe pain call my office Discharge Disposition: HOME SELF-CARE
== END 2020-11-07 12:00 | disposition home or self-care (01) | DRG 807 ==
LOC: FBPOP 08:24 → 4FBP 08:34
PROVIDERS: ADMIT Obstetrics & Gynecology; ATTEND Obstetrics & Gynecology
PROC: 10E0XZZ Delivery of Products of Conception, External Approach (ICD-10-PCS; principal; 2020-11-06)
PROC: 10907ZC Drainage of Amniotic Fluid, Therapeutic from Products of Conception, Via Natural or Artificial Opening (ICD-10-PCS; 2020-11-06)
PROC: 0HQ9XZZ Repair Perineum Skin, External Approach (ICD-10-PCS; 2020-11-06)
DX: O80 Encounter for full-term uncomplicated delivery (principal); Z37.0 Single live birth; Z3A.39 39 weeks gestation of pregnancy; O71.9 Obstetric trauma, unspecified
CPT/HCPCS: 59025; 85025; 86850; 86900; 86901; 87340; 99213

== ENCOUNTER 2022-07-20 23:35 | Inpatient (IN) | payer OTHER ==
[2022-07-20] MEDS: LACTATED RINGERS 1,000 ML IV SCH (23:55)
[2022-07-21] MEDS ORDERED: LIDOCAINE 0.5% (PF) 5 MG/ML (50 ML SDV) SQ PRN (00:19)
[2022-07-21] MEDS ORDERED: TERBUTALINE 1 MG/ML VIAL SQ PRN (00:19)
[2022-07-21 00:27] LABS: Basophils # (A) 0.1 k/uL (0-0.2); Basophils % (A) 1 %; Eosinophils # (A) 0.3 k/uL (0-0.7); Eosinophils % (A) 2 %; HCT 41.1 % (34.0-46.0); HGB 14.2 gm/dL (11.4-16.0); Lymphocytes % (A) 15 %; MCH 32.4 pg (25.0-35.0); MCHC 34.5 g/dL (31.0-37.0); MCV 93.8 fL (80.0-100.0); Mean Platelet Volume 9.5; Monocytes # (A) 0.9 k/uL (0-1.0); Monocytes % (A) 7 %; Neutrophils # (A) 9.9 k/uL (1.3-7.7); Neutrophils % (A) 74 %; Platelet Count 277 k/uL (150-450); RBC 4.38 m/uL (3.80-5.40); RDW 13.9 % (11.5-15.5); WBC 13.5 k/uL (3.8-10.6)
[2022-07-21] MEDS ORDERED: OXYTOCIN 30 UNITS/500 ML NS 30 UNIT in SALINE 1 500ML.BAG IV SCH (00:30)
[2022-07-21] MEDS: OXYTOCIN 30 UNITS/500 ML NS 30 UNIT in SALINE 1 500ML.BAG IV SCH ×2 (01:21→05:07)
--- NOTE | 2022-07-21 01:33 | P.HPOB ---
History of Present Illness H&P Date: 07/21/22 Chief Complaint: Labor at 40-3/7 weeks This is a 42-year-old 9 para 5126 woman with an estimated due date of 07/17/2022 who presents in spontaneous active labor at 40-3/7 weeks gestation. Upon presentation to labor and delivery triage she is found to be actively con tracting and 6-7 cm dilated. She is therefore admitted in active labor. has been remarkable for advanced maternal age and tobacco use. Obstetric history significant for 5 term vaginal deliveries, one vaginal delivery and 2 miscarriages. Data: Blood type A+, antibody screen negative, rubella immune, VDRL nonreactive, hepatitis B surface antigen negative, HIV negative, gonorrhea and clinic cultures negative, throughout glucose tolerance testing within normal limits, group B strep negative Review of Systems All systems: negative Past Medical History Past Medical History: Eye Disorder, Hypertension, Mitral Valve Prolapse (MVP) Additional Past Medical History / Comment(s): HTN w/ prior . 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 Occ heartburn History of Any Multi-Drug Resistant Organisms: None Reported Past Surgical History: No Surgical Hx Reported Additional Past Surgical History / Comment(s): [place] teeth extracted. D&C Past Anesthesia/Blood Transfusion Reactions: No Reported Reaction Past Psychological History: Anxiety, Depression Additional Psychological History / Comment(s): Hx after 1st miscarriage, also po stpartum after last . Smoking Status: Current every day smoker Past Alcohol Use History: None Reported Past Drug Use History: None Reported - Past Family History Mother Family Medical History: No Reported History Father Family Medical History: No Reported History Medications and Allergies Home Medications Medication Instructions Recorded Confirmed Type No Known Home Medications 07/20/22 07/20/22 History Allergies Allergy/AdvReac Type Severity Reaction Status Date / Time No Known Allergies Allergy Verified 07/20/22 23:41 Exam Vital Signs Temp Pulse Resp BP Pulse Ox 07/21/22 00:51 97.8 F 101 H 18 142/98 98 Intake and Output 07/20/22 07/20/22 07/21/22 14:59 22:59 06:59 Other: Weight 80.739 kg Targeted physical exam is performed. Upon my initial evaluation patient is 9 cm dilated. Artificial rupture of membranes is undertaken and thin meconium- stained fluid is noted. heart tones are category 1. She is vinicius every 3-4 minutes. Results Result Diagrams: 07/21/22 00:02 Abnormal Lab Results - Last 24 Hours (Table) 07/21/22 Range/Units 00:02 WBC 13.5 H (3.8-10.6) k/uL Neutrophils # 9.9 H (1.3-7.7) k/uL Assessment and Plan (1) Advanced maternal age (AMA) in Current Visit: Yes Status: Acute Code(s): EHL3200 - SNOMED Code(s): 719550053 (2) Post-dates Current Visit: Yes Status: Acute Code(s): O48.0 - POST-TERM SNOMED Code(s): 29224405 (3) Spontaneous onset of labor Current Visit: Yes Status: Acute Code(s): THG2184 - SNOMED Code(s): 87455075 (4) Tobacco abuse Current Visit: Yes Status: Acute Code(s): Z72.0 - TOBACCO USE SNOMED Code(s): 030657601 Plan: 42-year-old 9 para 6 woman admitted at 40-3/7 weeks gestation in active labor. Group B strep negative and Rh+. status reassuring. Anticipate normal spontaneous vaginal delivery.
[2022-07-21] MEDS ORDERED: diphenhydrAMINE 25 MG CAP PO PRN (01:36)
[2022-07-21] MEDS ORDERED: HYDROCORTISONE 2.5% RECTAL CREAM 30 GM TUBE RECTAL PRN (01:36)
[2022-07-21] MEDS ORDERED: diphenhydrAMINE 50 MG/ML 1 ML VIAL IVP PRN ×2 (01:36)
[2022-07-21] MEDS ORDERED: ZOLPIDEM 5 MG TAB PO PRN (01:36)
[2022-07-21] MEDS ORDERED: LANOLIN CREAM 5 GM TUBE TOPICAL PRN (01:36)
[2022-07-21] MEDS ORDERED: BENZOCAINE/MENTHOL SPRAY 1 GM/SPRAY AEROSOL TOPICAL PRN (01:36)
[2022-07-21] MEDS ORDERED: SIMETHICONE 80 MG CHEWABLE PO PRN (01:36)
[2022-07-21] MEDS ORDERED: diphenhydrAMINE 50 MG CAP PO PRN (01:36)
--- NOTE | 2022-07-21 01:36 | P.PROBDLV ---
Vaginal Delivery Note - . Vaginal Delivery Note: Findings: Male infant in the vertex left occiput anterior presentation with Apgars of 8 at 1 minute and 9 at 5 minutes weighing 8 lbs. 4 oz., 3700 g. Intact, three-vessel cord placenta. No perineal lacerations noted. EBL approximately 100 mL's. Delivery summary: This is a 42-year-old 9 para 6 woman who presents at 40-3/7 weeks gestation in spontaneous advanced active labor. Following admission she was 6-7 cm dilated. Within the hour she progressed to 9 cm dilated and artificial rupture membranes was undertaken. Meconium-stained fluid was noted. Immediately following rupture of membranes patient had a strong urge to push. She was repositioned, prepped and draped on however on maternal effort 1 the 's head was . The rest the delivered extremly rapidly onto the field. Nose and mouth were bulb suctioned and the was placed on the maternal abdomen. Cord was clamped and cut. Apgars 8 at 1 minute and 9 at 5 minutes. After approximately 10 minute third stage of labor the placenta delivered intact. The uterus was massaged and noted to be firm. She received Pitocin following third stage of labor. The perineum and vagina were inspected and no lacerations were noted. EBL was less than 100 mL's. Both mother and infant were doing well post delivery in the room.
[2022-07-21] MEDS: IBUPROFEN 600 MG TAB PO PRN ×4 (02:00→21:14)
[2022-07-21] MEDS ORDERED: METHYLERGONOVINE 0.2 MG/ML 1 ML AMP IM ONE (03:42)
[2022-07-21] MEDS: SENNOSIDES-DOCUSATE SODIUM 1 EACH TAB PO SCH ×2 (07:37→21:14)
[2022-07-21] MEDS: LACTATED RINGERS 1,000 ML IV SCH ×2 (09:40→19:36)
[2022-07-21 14:27] LABS: HCT 36.1 % (34.0-46.0); HGB 12.3 gm/dL (11.4-16.0); MCH 32.5 pg (25.0-35.0); MCV 95.7 fL (80.0-100.0); Mean Platelet Volume 9.6; Platelet Count 252 k/uL (150-450); RBC 3.77 m/uL (3.80-5.40); RDW 13.8 % (11.5-15.5); WBC 17.8 k/uL (3.8-10.6)
[2022-07-21 16:44] VITALS: RESP 16
[2022-07-21] MEDS: ACETAMINOPHEN TAB 325 MG TAB PO PRN (17:34)
[2022-07-22] MEDS: ACETAMINOPHEN TAB 325 MG TAB PO PRN ×2 (00:11→08:25)
[2022-07-22] MEDS: LACTATED RINGERS 1,000 ML IV SCH ×2 (01:47→10:00)
[2022-07-22] MEDS: IBUPROFEN 600 MG TAB PO PRN (05:12)
[2022-07-22] MEDS: SENNOSIDES-DOCUSATE SODIUM 1 EACH TAB PO SCH (08:26)
--- NOTE | 2022-07-22 08:54 | P.DS ---
Providers Date of admission: 07/20/22 23:53 Expected date of discharge: 07/22/22 Attending physician: Vinod Pace Primary care physician: Stated None - Discharge Diagnosis(es) (1) hemorrhage Current Visit: Yes Status: Acute Hospital Course: the patient is a 42-year-old 9 para 5126 who presented in active labor at 40-3/7 weeks. She at presentation was found to be 6-7 cm dilated. Her was essentially uncomplicated. She did fall into the category of advanced maternal age and declined trisomy testing. On labor and delivery, all signs were reassuring with category 1 heart rate tracing. she progressed to 9 cm at which time artificial rupture of membranes is carried out demonstrating meconium-stained fluid. But immediately had the urge to push. She then pushed to a normal spontaneous vaginal delivery of a viable 8 lbs. 4 oz. baby boy with Apgars of 8 at 1 minute and 9 at 5 minutes. Her course was complicated by a hemorrhage the for which standard measures were taken and the bleeding appeared to be controlled. Several hours after delivery she passed what appeared to be a piece of placental tissue after which time all bleeding abated. She had no significant change in her hemodynamic status and vital signs remained stable throughout. She was deemed stable for discharge on day #1 to follow-up in the office in 6 weeks' time routinely. Discharge instructions included calling for any significantly increased bleeding or foul-smelling lochia, significantly increased fever abdominal pain, perineal complaints, breast complaints, or anything else that concerned her. She was additionally instructed to have nothing in the vagina for at least 6 weeks time to include intercourse. She understood her instructions and agrees to follow up as noted above. Discharge medications included continued vitamins as she has opted to breast-feed. She was otherwise to use [id number] analgesic pain medications as needed. Maternal blood type is A+ and rubella status is immune. Discharge hemoglobin and hematocrit are pending at this time but previous H&H at approximately 8 hours after hemorrhage were 12.3 and 36.1 respectively. Procedures: #1. Artificial rupture of membranes #2. Normal spontaneous vaginal delivery Patient Condition at Discharge: Stable Plan - Discharge Summary New Discharge Prescriptions: No Action No Known Home Medications Discharge Medication List No Known Home Medications 07/20/22 [History] Follow up Appointment(s)/Referral(s): Vinod Pace MD [STAFF PHYSICIAN] - 6 Weeks Discharge Disposition: HOME SELF-CARE
[2022-07-22 09:00] VITALS: BP 136/86; PULSE 77; TEMP 97.4
[2022-07-22 09:55] LABS: Basophils # (A) 0.1 k/uL (0-0.2); Basophils % (A) 1 %; Eosinophils # (A) 0.5 k/uL (0-0.7); Eosinophils % (A) 4 %; HCT 35.4 % (34.0-46.0); Lymphocytes # (A) 2.6 k/uL (1.0-4.8); Lymphocytes % (A) 19 %; MCH 32.5 pg (25.0-35.0); MCHC 33.8 g/dL (31.0-37.0); MCV 96.2 fL (80.0-100.0); Mean Platelet Volume 10.1; Monocytes % (A) 7 %; Neutrophils # (A) 9.2 k/uL (1.3-7.7); Neutrophils % (A) 68 %; Platelet Count 250 k/uL (150-450); RBC 3.68 m/uL (3.80-5.40); RDW 13.8 % (11.5-15.5); WBC 13.6 k/uL (3.8-10.6)
== END 2022-07-22 10:45 | disposition home or self-care (01) | DRG 807 ==
LOC: FBPOP 23:35 → 4FBP 23:53
PROVIDERS: ADMIT Obstetrics & Gynecology; ATTEND Obstetrics & Gynecology
PROC: 10907ZC Drainage of Amniotic Fluid, Therapeutic from Products of Conception, Via Natural or Artificial Opening (ICD-10-PCS; principal; 2022-07-21)
PROC: 10E0XZZ Delivery of Products of Conception, External Approach (ICD-10-PCS; 2022-07-21)
DX: O16.4 Unspecified maternal hypertension, complicating childbirth (principal); Z37.0 Single live birth; I34.1 Nonrheumatic mitral (valve) prolapse; O72.1 Other immediate postpartum hemorrhage; O99.334 Smoking (tobacco) complicating childbirth; O48.0 Post-term pregnancy; O77.0 Labor and delivery complicated by meconium in amniotic fluid; F17.210 Nicotine dependence, cigarettes, uncomplicated; R12 Heartburn; Z3A.40 40 weeks gestation of pregnancy; Z87.51 Personal history of pre-term labor; Z28.310 Unvaccinated for COVID-19
CPT/HCPCS: 59025; 84112; 85025; 85027; 86850; 86900; 86901; 99213